=== PATIENT | male | born 1955 | race Caucasian/White ===

== ENCOUNTER → 2018-02-02 | Day surgery (SDC) | payer OTHER ==
[~2018-02-02] MED LIST: CEFTRIAXONE SOD 1 GM VIAL ONE; DEXAMETHASONE SOD PHOS INJ 4 MG/ML VIAL ONE; FENTANYL CITRATE/PF 100MCG/2 ML INJ ONE; IOPAMIDOL 300MG/ML 50ML INFUS..BTL IV ONE; LEVOFLOXACIN 500MG/D5W 100ML 100 ML IV ONE; LEVOTHYROXINE112 MCG PO; LIDOCAINE HCL 2% LOCAL INJ 5 ML SDV VIAL INJ ONE; MIDAZOLAM HCL 2 MG/2 ML VIAL ONE; ONDANSETRON HCL INJ 2 MG/ML VIAL ONE; PROPOFOL IV EMULSION 10 MG/ML 20 ML VIAL ONE; SEVOFLURANE INHAL SOLN 250 ML PEN BTL ONE
[2018-02-02 09:05] VITALS: BP 117/67
--- NOTE | 2018-02-02 09:34 | Operative Report ---
DATE OF PROCEDURE: February 02, 2018 PREOPERATIVE DIAGNOSIS: Gross hematuria. POSTOPERATIVE DIAGNOSES 1. Urethral stricture disease. 2. Bladder cancer. PROCEDURES 1. Cystourethroscopy with ureteral calibration and dilation for urethral stricture (entirely separate procedure for the urethral stricture disease). 2. Cystourethroscopy with left ureteral catheterization and left retrograde pyelogram (separate procedure for diagnosis of gross hematuria). 3. Cystourethroscopy with right ureteral catheterization and right retrograde pyelogram (separate procedure for diagnosis of gross hematuria). 4. Supervision of fluoroscopy. 5. Interpretation of retrograde pyelography. 6. Cystourethroscopy with transurethral fulguration of large, greater than 8 cm squared, bladder tumor, sessile. ANESTHESIA: General. ESTIMATED BLOOD LOSS: Less than 30 mL. COMPLICATIONS: None. INDICATIONS: Mr. Diallo is a 62-year-old male who has had a long history of gross hematuria. He and I had a long discussion regarding the alternatives, risks and benefits, including doing nothing, cystoscopy, IVP, retrograde pyelogram, or renal ultrasound. He voiced an understanding of the options, the alternatives, and the risks and benefits, and he elected to proceed. PROCEDURE IN DETAIL: After informed consent was obtained, the patient was taken to the operative suite and placed supine on the table and underwent general anesthesia by the anesthesia service. He was placed in the dorsal lithotomy position. He was sterilely prepped and draped in the standard fashion for cystoscopy. A 22.5-Austrian cystoscope was attempted to be inserted per urethra. This failed. Utilizing a 21-Austrian cystoscope, the urethra was calibrated to 16 Austrian, dilated to 22 Austrian. The scope was introduced. There was bilobar prostatic hypertrophy. Panendoscopy of the bladder revealed large papillary tumors covering the entire left hemitrigone and left wall of the bladder as well as the right wall of the bladder and right hemitrigone. Total area approximately 4 x 4 cm squared on the right and 6 x 6 cm squared on the left. Biopsy was taken of this utilizing the [employer] electrocautery. As much of this as possible was fulgurated to stop any bleeding. At this time, with no active bleeding noted, the bladder was drained. The patient was awakened from anesthesia after a retrograde pyelogram was performed. SUPERVISION OF FLUOROSCOPY AND INTERPRETATION OF RETROGRADE PYELOGRAPHY: I was present and supervised the use of fluoroscopy as no radiologist was present. Attention was turned toward the left and right ureteral orifices, which were catheterized with an 8-Austrian, cone-tip catheter in a retrograde fashion. Contrast was injected, revealing delicate ureters and delicate pelvicaliceal systems. No evidence of filling defects. No evidence of hydronephrosis. IMPRESSION: Normal retrograde pyelograms. Job#: [id number]
--- NOTE | 2018-02-02 13:32 | Diagnostic Imaging Report ---
Retrograde pyelogram COMPARISON: None HISTORY: C-arm assisted retrograde pyelogram TECHNIQUE: Multiple abdominal spot radiographs from the procedure were made available for evaluation. RADIATION DOSE: Fluoroscopy Time: 0.18 min Dose (Kerma) Area Product: 267.2 cGycm2 Air Kerma ([place]) value has been reviewed. It is below the limits set by the Radiation Protocol Committee (RPC) committee. DISCUSSION: Retrograde contrast filling of the right ureter. No filling defects, stricture, or contrast extravasation on limited evaluation. IMPRESSION: Limited spot images from a fluoroscopic retrograde pyelogram as detailed above. Signed by: Dr. Cleopatra Boyer M.D. on 02/02/2018 1:28 PM
== END | disposition home or self-care (01) ==
LOC: OR 06:00
PROVIDERS: ATTEND Urology
DX: C67.8 Malignant neoplasm of overlapping sites of bladder (principal); N35.9 Urethral stricture, unspecified; N40.0 Benign prostatic hyperplasia without lower urinary tract symptoms; G47.33 Obstructive sleep apnea (adult) (pediatric); I49.1 Atrial premature depolarization; E78.5 Hyperlipidemia, unspecified; E03.9 Hypothyroidism, unspecified; K21.9 Gastro-esophageal reflux disease without esophagitis; F41.9 Anxiety disorder, unspecified; Z88.0 Allergy status to penicillin; Z01.810 Encounter for preprocedural cardiovascular examination; Z87.891 Personal history of nicotine dependence
CPT/HCPCS: 52005; 52240; 74420; 88112; 88305; 93005; C1758; J1100; J1956; J2001; J2250; J2405; Q9967; J0696